=== PATIENT | male | born 1960 | race Caucasian/White ===

== ENCOUNTER → 2021-07-03 08:31 | Outpatient (CLI) | payer SELFPAY ==
--- NOTE | 2021-07-03 08:37 | EKG12_ITS ---
Test Reason : PRE OP Blood Pressure : / mmHG Vent. Rate : 094 BPM Atrial Rate : 094 BPM P-R Int : 138 ms QRS Dur : 102 ms QT Int : 358 ms P-R-T Axes : 035 058 042 degrees QTc Int : 447 ms Normal sinus rhythm Normal ECG Confirmed by JENNIFER PATEL, NAHUM ([id number]), assignment editor CRESCENCIO MCKEE ([id number]) on 07/04/2021 8:16:27 AM Referred By: Andreas Hood Confirmed By:NAHUM RODRIGUEZ MD
--- NOTE | 2021-07-03 08:37 | RAD_ITS ---
STUDY: X-RAY CHEST REASON FOR EXAM: Male, 60 years old. PRE OP TECHNIQUE: PA and lateral views of the chest. COMPARISON: None. FINDINGS: A right-sided portacatheter is in place with the tip at the junction of the superior vena cava and right atrium. There is hyperinflation of the lungs consistent with chronic obstructive lung disease (COPD). There is no demonstrated pleural abnormality. Normal size heart. Normal mediastinum and stephenie. Normal visualized pulmonary arteries. Normal visualized aortic arch and descending thoracic aorta. Normal visualized thoracic spine. Normal visualized ribs, clavicles, and shoulders. The patient is status post cholecystectomy. RAD/Chest PA and Lateral IMPRESSION: Hyperinflation. Electronically Signed: Ry Sosa MD at 10:15 EST , Service support ,
== END ==
PROVIDERS: PCP Family Medicine; Referring Provider Orthopaedic Surgery; Visit Provider Orthopaedic Surgery
DX: Z01.810 Encounter for preprocedural cardiovascular examination (principal)
CPT/HCPCS: 71046; 93005

== ENCOUNTER → 2022-01-10 | Outpatient (CLI) | payer SELFPAY ==
--- NOTE | 2022-01-10 09:14 | EKG12_ITS ---
Test Reason : PRE OP Blood Pressure : / mmHG Vent. Rate : 082 BPM Atrial Rate : 082 BPM P-R Int : 142 ms QRS Dur : 106 ms QT Int : 370 ms P-R-T Axes : 034 058 041 degrees QTc Int : 432 ms Normal sinus rhythm Normal ECG When compared with ECG of 03-JUL-2021 08:43, No significant change was found Confirmed by JEANNINE PATEL, EDGAR ([id number]), news editor CRESCENCIO MCKEE ([id number]) on 01/10/2022 2:11:35 PM Referred By: WENDY Confirmed By:EDGAR PAEZ MD
[2022-01-10 09:24] LABS: Absolute Lymphocyte Count 1.49 X10^3/uL (0.83-4.51); Absolute Neutrophil Count 4.6 X10^3/uL (2.0-7.7); Basophil# 0.05 X10^3/uL; Basophil% 0.7 % (0-1); Eosinophil# 0.07 X10^3/uL; Hematocrit 46.5 % (40-54); Hemoglobin 15.7 g/dL (13.0-16.5); Lymphocyte # 1.49 X10^3/ul (0.83-4.51); Mean Corp Hgb Conc 33.8 g/dL (32-36); Mean Corpuscular Hgb 29.3 pg (27.0-32.0); Mean Corpuscular Volume 86.9 fL (80-94); Mean Platelet Vol. 10.8 fl (6.2-12.0); Monocyte# 0.56 X10^3/uL; Monocyte% 8.3 % (0-10); NRBC Flagged by Analyzer 0 % (0-5); Neutrophil # 4.57 X10^3/uL (2.7-7.7); Neutrophil % 67.7 % (47-70); Platelet Count 242 K/mm3 (150-450); RBC Distribution Width CV 12.5 % (11.6-14.6); RBC Distribution Width SD 39.4 fl (35.1-43.9); Red Blood Count 5.35 M/mm3 (4.6-6.2); White Blood Count 6.8 K/mm3 (4.4-11.0)
[2022-01-10 09:55] LABS: BUN 14 mg/dL (7-18); Creatinine, Serum 1.02 mg/dL (0.70-1.30); EST Glomerular Filtration Rate 78 mL/min (>60); Glucose 124 mg/dL (74-106)
[2022-01-10 09:56] LABS: Anion Gap 8 (5-15); BUN/Creat Ratio 13.7 RATIO (10-20); Calcium,Total 8.6 mg/dL (8.5-10.1); Chloride 108 mmol/L (98-107); Est Glom Filt Rate - Afr Amer 95 mL/min (>60); Potassium 3.7 mmol/L (3.5-5.1); Sodium Level 140 mmol/L (136-145)
== END | disposition home or self-care (01) ==
PROVIDERS: PCP Family Medicine; Visit Provider Physician Assistant
DX: Z01.818 Encounter for other preprocedural examination (principal); Z01.810 Encounter for preprocedural cardiovascular examination; Z20.822 Contact with and (suspected) exposure to COVID-19
CPT/HCPCS: 36415; 80048; 85025; 87426; 93005; C9803

== ENCOUNTER → 2022-01-12 | Outpatient (CLI) | payer SELFPAY ==
--- NOTE | 2022-01-12 10:30 | KNEE_PTH ---
PATIENT: OSMEL ROJAS LOC: [facility] U#:[id number] AGE/SX: 61/M ROOM: RE01/12/[address]: Jesenia Manrique : 1960 BED: DIS: 01/12/2022 SPEC #: [id number] RECD: 01/12/22 14:55 STATUS: YASMEEN REQ #: [id number] SHAWN: 01/12/22 10:[address]: Andreas Hood DEPT: SURGICAL PATHOLOGY RECD BY: Patricia Wade ENTERED: 01/15/22 08:24 SP TYPE: TOTAL KNEE OTHR DR: MD Jesenia Alves [facility] Tissues: Knee, NOS Procedures: Decalcification bone/plaque Surgery Specimen Level IV Comments: @ Ordering doctor for DEC edited from CELESTINE to @ by YOEL at 01/31/22 1331 @ Ordering doctor for SUIV edited from CELESTINE to @ by YOEL at 01/31/22 1331 @ Submitting doctor edited from CELESTINE to @ by YOEL at 01/31/22 1331 HEADER OPERATION: Right total knee arthroplasty PRE-OP DIAGNOSIS: Right knee severe grade 4 osteoarthritis TISSUE SUBMITTED: Bone and soft tissue right knee MICROSCOPIC DIAGNOSIS Bone and soft tissue, right knee, total knee replacement/resection: Pieces of bone with degenerative osteoarthritic changes. Fibroadipose tissue, fibroconnective tissue and reactive synovial tissue. IRIS:fang 01/18/2022 MICROSCOPIC DESCRIPTION Slides are reviewed. GROSS DESCRIPTION Received is one container designated bone and soft tissue right knee. The specimen consists of multiple fragments of ragsdale-yellow bone measuring in aggregate 10 x 10 x 3.5 cm. Also in the specimen container are multiple fragments of yellow-white soft tissue measuring in aggregate 5.5 x 6 x 2 cm. A number of bony fragments contain articular surfaces consistent with tibial plateau and femoral condyle and displaying prominent osteophyte formation, eburnation, and bone erosion. Vehicle Body Builder sections are submitted in two cassettes as follows: 1 - soft tissue, 2 - bone after decalcification. / IRIS:fang 01/15/2022 TC:5 CPT: [id number], [id number]
== END | disposition home or self-care (01) ==
PROVIDERS: PCP Family Medicine
DX: M17.11 Unilateral primary osteoarthritis, right knee (principal)
CPT/HCPCS: 88305; 88311

== ENCOUNTER → 2022-01-15 | Outpatient (CLI) | payer SELFPAY ==
--- NOTE | 2022-01-15 12:19 | VDLE_ITS ---
Reason For Study: Pain, Recent knee surgery RIGHT LEFT GSV is normal. CFV is compressible, spontaneous, phasic, PTV is compressible. competent, and demonstrates normal RT PerV is compressible. augmentation. Rt PopV, Rt T/P Trunk, and Rt GastrocV are dilated and non compressible consistent with acute DVT Rt CFV and Rt FV are partially compressible with bright intraluminal consistent with chronic DVT. Procedure This is a venous duplex using B-mode, color flow and spectral Doppler. Exam performed in department. A preliminary report was called and/or faxed to Yaquelin Osman. VL/Venous Duplex US, Unilateral Interpretation Summary Acute deep vein thrombosis is noted in the right popliteal vein. Acute deep vei n thrombosis is noted in the right tibio-peroneal trunk. Acute deep vein thrombosis is noted in the r ight gastrocnemius vein. Chronic venous changes are noted in the right common femoral vein and fem oral vein. The right posterior tibial vein and peroneal vein are patent and compressible. The right great saphenous vein appears patent and compressible segmentally. Ordering Physician: Andreas Hood Referring Physician: Travis Beckett Performed By: Lenore Vides RDCS, RVT
== END | disposition home or self-care (01) ==
PROVIDERS: PCP Family Medicine; Referring Provider Orthopaedic Surgery; Visit Provider Orthopaedic Surgery
DX: M79.661 Pain in right lower leg (principal)
CPT/HCPCS: 93971

== ENCOUNTER → 2022-02-05 | Outpatient (CLI) | payer SELFPAY ==
[2022-02-05 10:50] LABS: Erythrocyte Sedimentation Rate 42 mm/hr (0-20)
[2022-02-05 10:53] LABS: Absolute Lymphocyte Count 1.16 X10^3/uL (0.83-4.51); Absolute Neutrophil Count 7.5 X10^3/uL (2.0-7.7); Basophil# 0.03 X10^3/uL; Basophil% 0.3 % (0-1); Eosinophil# 0.04 X10^3/uL; Eosinophils% 0.4 % (0-5); Hematocrit 43.6 % (40-54); Hemoglobin 14.3 g/dL (13.0-16.5); Lymphocyte # 1.16 X10^3/ul (0.83-4.51); Lymphocyte % 12.3 % (19-41); Mean Corp Hgb Conc 32.8 g/dL (32-36); Mean Corpuscular Hgb 28.8 pg (27.0-32.0); Mean Corpuscular Volume 87.7 fL (80-94); Mean Platelet Vol. 9.8 fl (6.2-12.0); Monocyte# 0.65 X10^3/uL; Monocyte% 6.9 % (0-10); NRBC Flagged by Analyzer 0 % (0-5); Neutrophil % 79.7 % (47-70); Platelet Count 455 K/mm3 (150-450); RBC Distribution Width CV 12.8 % (11.6-14.6); RBC Distribution Width SD 41.1 fl (35.1-43.9); Red Blood Count 4.97 M/mm3 (4.6-6.2); White Blood Count 9.4 K/mm3 (4.4-11.0)
== END | disposition home or self-care (01) ==
LOC: LAB 08:54
PROVIDERS: PCP Family Medicine; Referring Provider Physician Assistant Surgical; Visit Provider Physician Assistant Surgical
DX: L03.116 Cellulitis of left lower limb (principal); Z47.1 Aftercare following joint replacement surgery
CPT/HCPCS: 36415; 85025; 85652; 86140

== ENCOUNTER → 2022-02-06 | Outpatient (CLI) | payer SELFPAY ==
[2022-02-06 11:23] LABS: Synovial Fld Mononuclear WBC # 0.261 10^3/ul; Synovial Fld Mononuclear WBC % 77.9 %; Synovial Fld Polynuclear WBC # 0.074 10^3/uL; Synovial Fld Polynuclear WBC % 22.1 %
[2022-02-06 11:25] LABS: RBC /Synovial Fluid 0.015 10^6/uL (0)
[2022-02-06 11:27] LABS: AUTO B FLUID DILUENT BKGD CT WBC <0.1 RBC <0.01 (W<.1,R<.01); Source / Synovial Fluid RIGHT KNEE
[2022-02-06 11:28] LABS: Appearance /Synovial Fluid Cloudy (CLEAR)
[2022-02-06 12:03] LABS: Body Fluid QC Type(s) BF2Q; Lymph 17 %; Monocyte /Synovial Fluid 40 %; Neutrophil 36 % (0-25); Other Cell /Synovial Fluid 7 %
[2022-02-09 09:52] LABS: Pathologist Comment Reviewed
== END | disposition home or self-care (01) ==
LOC: LABSPEC 10:17
PROVIDERS: PCP Family Medicine; Referring Provider Orthopaedic Surgery; Visit Provider Orthopaedic Surgery
DX: M25.461 Effusion, right knee (principal); Z74.1 Need for assistance with personal care
CPT/HCPCS: 87015; 87070; 87075; 87101; 87116; 87205; 87206; 89050; 89051

== ENCOUNTER → 2025-01-08 | Outpatient (CLI) | payer OTHER, MEDICARE, SELFPAY ==
--- NOTE | 2025-01-08 12:30 | KNEE_PTH ---
PATIENT: OSMEL ROJAS LOC: [facility] U#:[id number] AGE/SX: 64/M ROOM: RE01/08/[address]: Dr. Andreas Hood MD : 1960 BED: DIS: 01/08/2025 SPEC #: [id number] RECD: 01/08/25 15:10 STATUS: YASMEEN REQ #: [id number] SHAWN: 01/08/25 12:[address]: Andreas Hood DEPT: SURGICAL PATHOLOGY RECD BY: Mi Mckeon ENTERED: 01/11/25 07:31 SP TYPE: TOTAL KNEE OTHR DR: Dr. Travis Beckett MD Tissues: Knee, NOS Procedures: Decalcification bone/plaque Surgery Specimen Level III HEADER OPERATION: Left total knee arthroplasty PRE-OP DIAGNOSIS: Left knee grade 4 primary osteoarthritis with varus deformity TISSUE SUBMITTED: A- Left knee bone and tissue MICROSCOPIC DIAGNOSIS A. Left knee, total knee arthroplasty: * Articular bone and soft tissue with marked reactive/degenerative changes. MICROSCOPIC DESCRIPTION Slides are reviewed. GROSS DESCRIPTION A. Received in formalin in a container labeled with the patient's name, date of , and with no further designation are multiple ragsdale and firm fragments of bone with soft tissue measuring 11.5 x 9.5 x 3.0 cm in aggregate. The specimen consists of, but is not limited to, medial/lateral condyle and tibial plateau. The resection margins are smooth, and firm and the cortical surfaces are pitted and granular with smooth areas of eburnation. Sectioning of the bone and soft tissue reveal unremarkable cut surfaces. Clerk Secretary sections submitted in A1 following decalcification (including bone and soft tissue). [facility] 01-11-2025 CPT:[id number]
== END | disposition home or self-care (01) ==
LOC: LAB 15:43
PROVIDERS: PCP Family Medicine; Visit Provider Orthopaedic Surgery
DX: M17.12 Unilateral primary osteoarthritis, left knee (principal); M21.962 Unspecified acquired deformity of left lower leg
CPT/HCPCS: 88304; 88305; 88311